=== PATIENT | male | born 1960 | race Caucasian/White ===

== ENCOUNTER 2024-12-14 20:00 | Outpatient (CLI) | payer OTHER, MEDICARE, SELFPAY | END 2024-12-14 20:01 | disposition home or self-care (01) | LOC: SLEEP 20:04 | PROVIDERS: PCP Family Medicine; Visit Provider Internal Medicine | DX: G47.33 Obstructive sleep apnea (adult) (pediatric) (principal); R09.02 Hypoxemia | CPT/HCPCS: 95811 ==